=== PATIENT | female | born 1975 | race African-American/Black ===

== ENCOUNTER 2017-03-21 18:14 | Emergency (ER) | payer OTHER ==
--- NOTE | ~2017-03-21 | CT2 ---
[facility] A Service of [facility] & [facility] RADIOLOGY TEXT RESULTS PATIENT: NAPOLEON GUTIERREZ LOCATION: [facility] : 73 UNIT #: [id number] AGE: [address]: Ramon Valentine DO SEX: F ORDER DR: [id number] [facility] [address] [place], [place] [address] [id number] E MR#: [id number] #: [id number] NAME: NAPOLEON GUTIERREZ : 1975 SEX: F STUDY DATE/TIME: 03/22/2017 00:49 UNIT: [facility] ROOM: STUDY DESCRIPTION: CT Abd and Pelv W Cont Attending Physician: Ramon Valentine D.O. Ordering Physician: Ramon Valentine D.O. Primary Care Physician: Primary Care Physician No MEDICAL IMAGING REPORT This report is preliminary unless electronic signature is present EXAM Abdomen and pelvis CT, 03/22 at 0049 hours INDICATIONS Abdominal pain radiating to the back that started yesterday morning. There is associated nausea. Patient gives a prior history of colon cancer. TECHNIQUE Axial images were obtained through the abdomen and pelvis following IV contrast administration. Multiplanar reformats were obtained. Comparison made with 01/08/2016. This CT exam was performed with one or more of the following radiation dose reduction techniques: Automatic exposure control, adjustment of mA and/or kV according to patient size, and iterative reconstruction. FINDINGS ABDOMEN: Lung bases are clear. Gallbladder is unremarkable. There is no biliary obstruction. Low-density change in the medial segment of the left hepatic lobe is most compatible with focal fatty infiltration. There is cortical scarring throughout the right kidney, which is similar in appearance to the prior study. The left kidney is normal. Solid organs are otherwise within normal limits. No free fluid or adenopathy is seen. Unopacified GI tract is grossly normal. PELVIS: Appendix is normal. The remainder of the unopacified GI tract is normal as well. Small volume of free fluid in the cul-de-sac is probably physiologic. Urinary bladder normal. Very small calcification in the left ovary is unchanged. There are at least 2 small left ovarian cysts. At least one of these could be ruptured. The uterus demonstrates nodular enhancement, likely reflecting leiomyomata. IMPRESSION 1. The unopacified GI tract, including the appendix, is grossly STS. [facility] A Service of [facility] RADIOLOGY TEXT RESULTS PATIENT: NAPOLEON GUTIERREZ LOCATION: [facility] : 73 UNIT #: [id number] AGE: [address]: Ramon Valentine DO SEX: F ORDER DR: normal. 2. Chronic scarring in the right kidney, as seen previously. 3. Probable fibroid uterus. 4. There are at least 2 small left ovarian cysts, at least one of these could be ruptured. There is some free fluid in the cul-de-sac. Dictated by... Jose D Rivero Jr., M.D. THIS IS AN ELECTRONICALLY VERIFIED REPORT Jose D Rivero Jr., M.D. at 03/22/2017 6:02 AM JESSY/jordan TD: 03/22/2017 03:15 JOB #: [id number] MEDICAL IMAGING REPORT Page 1 of 1 COPY
[~2017-03-21 18:14] MED LIST: ACETAMINOPHEN PO; ALBUTEROL17 GM INH; BACTRIM DS TABL1 TA1 PO; CARAFATE1 G PO; CIPRO PO; COLACE PO; DICLOFENAC PO; DOXYCYCLINE HY100 M1 PO; FLAGYL PO; FLEXERIL PO; LEVAQUIN PO; LORTAB 5/500 TA1 TA1 PO; MILK OF MAGNESIA PO; MIRALAX255 GM PO; NICOTINE T1 PATCH .2 TOP; NO MEDICATIONS; NORCO 5/325 TAB1 TAB PO; PATIENT'S PHARMACY; PEN-VEE K PO; PERCOCET10 PO; PERCOCET5/325; PHENERGAN PO; PREDNISONE PO; PROTONIX PO; PYRIDIUM100 MG PO; REGLAN PO; REGLAN10 MG PO; TYLENOL #3 PO; ULTRAM PO; VICODIN 5/1 TAB 5/50 PO; VICODIN 5/500 T1 TAB PO; VICODIN PO; VICOPROFEN 200-1 TAB; VICOPROFEN 200-1 TAB PO; ZANTAC PO; ZOFRAN PO
[2017-03-21 22:39] LABS: URINE SOURCE CLEAN CATCH
[2017-03-21 22:49] LABS: URINE APPEARANCE CLEAR; URINE BILIRUBIN NEG (NEG); URINE BLOOD NEG (NEG); URINE COLOR YELLOW; URINE GLUCOSE NEG (NEG); URINE KETONE 2+ (NEG); URINE LEUKOCYTE ESTERASE NEG (NEG); URINE NITRATE NEG (NEG); URINE PH 7.5 (5-8); URINE PROTEIN NEG (NEG); URINE SPECIFIC GRAVITY 1.016 (1.003-1.035); URINE UROBILINOGEN 0.2 MG/DL (NEG)
[2017-03-21 22:53] LABS: CULTURE INDICATED? NO
[2017-03-21 23:04] LABS: BASOPHIL% 0.4 % (0-2.5); EOSINOPHIL% 0.2 % (0.0-7.0); HEMATOCRIT 40.8 % (35.0-45.0); LYMPHOCYTE# 1.8 X10e3 (1.0-3.5); LYMPHOCYTE% 21.9 % (17.0-45.0); MEAN CELL VOLUME 72.9 FL (83-96); MEAN CORPUSCULAR HEMOGLOBIN 23.2 PG (28-34); MEAN CORPUSCULAR HGB CONC 31.8 g/dL (30-36); MEAN PLATELET VOLUME 9.7 FL (6.5-11.5); MONOCYTE% 12.4 % (3.0-12.0); NEUTROPHIL# 5.3 X10e3 (1.5-7.1); NEUTROPHIL% 65.1 % (40-75); PLATELET COUNT 207 X10e3 (140-420); RED CELL DISTRIBUTION WIDTH 14.7 % (11.0-15.5); WHITE BLOOD COUNT 8.1 X10e3 (4.0-10.5)
[2017-03-21 23:09] LABS: POC - CKMB <1.0 ng/mL (0.0-7.9); POC - TROPONIN <0.05 ng/mL (<=0.05)
[2017-03-21 23:10] LABS: DIFF IND NO
[2017-03-21 23:37] LABS: ALBUMIN SERUM 4.6 g/dL (3.5-5.0); BILIRUBIN, DIRECT 0.1 mg/dL (0.0-0.2); BILIRUBIN,INDIRECT 0.2 mg/dL (0.0-0.9); BILIRUBIN,TOTAL 0.3 mg/dL (0.2-2.0); CALCIUM SERUM 9.1 mg/dL (8.4-10.2); CREATININE SERUM 0.8 mg/dL (0.6-1.4); GLOM FILT RATE Estimated 105.5 mL/min (>60); POTASSIUM 3.7 mmol/L (3.5-5.1)
== END 2017-03-22 02:30 | disposition home or self-care (01) ==
LOC: CED 18:14
PROVIDERS: Emergency Medicine
DX: R10.9 Unspecified abdominal pain (principal); R07.9 Chest pain, unspecified; K21.9 Gastro-esophageal reflux disease without esophagitis; F17.200 Nicotine dependence, unspecified, uncomplicated; Z88.6 Allergy status to analgesic agent
CPT/HCPCS: 36415; 74177; 80048; 80076; 81003; 82150; 82553; 83690; 84484; 84703; 85025; 96361; 96374; 96375; 99284; C9113; J1170; J2270; J2405; Q9967